=== PATIENT | female | born 2000 | race African-American/Black ===

== ENCOUNTER 2020-01-17 17:14 | Emergency (ER) | payer BC, OTHER ==
[2020-01-17 17:42] VITALS: BP 139/87; PULSE 84; BMI 25.0
[2020-01-17 19:09] VITALS: TEMP 98.1
== END 2020-01-17 18:57 | disposition home or self-care (01) ==
LOC: JERFT 17:14
DX: S63.501A Unspecified sprain of right wrist, initial encounter (principal)
CPT/HCPCS: 73110-TC-RT-FY; 73130-TC-RT-FY; 99284-25